=== PATIENT | female | born 1950 | race Caucasian/White ===

== ENCOUNTER 2019-03-19 00:22 | Emergency (ER) | payer OTHER ==
[~2019-03-19] VITALS: Ht 165.1 cm; Wt 80.8 kg
[~2019-03-19 00:22] MED LIST: CEPH-443 PO; HYDR-4011 PO
[2019-03-19 00:27] VITALS: Ht 165.1 cm; Wt 80.8 kg
[2019-03-19] MEDS ORDERED: morphine 4 MG/ML VIAL IV STA (02:03)
[2019-03-19] MEDS ORDERED: CEFTRIAXONE 1 GM/50 ML (PMX) 50 ML IVPB ONE (04:00)
[2019-03-19 05:00] VITALS: BP 116/66; PULSE 56; RESP 18
== END 2019-03-19 05:10 | disposition home or self-care (01) ==
LOC: EDBD 00:22 → E/R 00:22
DX: N20.1 Calculus of ureter (principal); R40.2142 Coma scale, eyes open, spontaneous, at arrival to emergency department; R40.2362 Coma scale, best motor response, obeys commands, at arrival to emergency department; R40.2252 Coma scale, best verbal response, oriented, at arrival to emergency department; I10 Essential (primary) hypertension; F17.210 Nicotine dependence, cigarettes, uncomplicated; Z85.850 Personal history of malignant neoplasm of thyroid
CPT/HCPCS: 36415; 74176; 80048; 81001; 85025; 87086; 96374; 96375; J0696; J2270; Z7502